=== PATIENT | female | born 1955 | race Caucasian/White ===

== ENCOUNTER 2019-08-26 09:42 | Outpatient (CLI) | payer OTHER ==
[2019-08-26 16:13] LABS: Hemoglobin 13.5 g/dL (12.0-16.0); Mean Corpuscular HGB CONC 32.7 g/dL (32.0-36.0); Mean Corpuscular Hemoglobin 30.6 pg (27.0-31.0); Mean Corpuscular Volume 93.7 fL (78.0-98.0); Platelet Count 267 thou/uL (130-400); RBC Distribution Width 11.8 % (11.5-14.5); Red Blood Cell (RBC) Count 4.41 mill/uL (4.20-5.40); White Blood Cell (WBC) Count 10.1 thou/uL (4.8-10.8)
[2019-08-27 10:11] LABS: SARS-CoV-2 MS2 Positive; SARS-CoV-2 N Gene Negative; SARS-CoV-2 S Gene Negative; SARS-CoV-2 orf1ab Negative
--- NOTE | 2019-08-27 12:47 | EKG ---
Test Reason : Blood Pressure : / mmHG Vent. Rate : 074 BPM Atrial Rate : 074 BPM P-R Int : 124 ms QRS Dur : 090 ms QT Int : 380 ms P-R-T Axes : 050 071 045 degrees QTc Int : 421 ms Normal sinus rhythm Normal ECG No previous ECGs available Confirmed by DR. Ricardo CAMPBELL ([id number]) on 08/27/2019 12:46:51 PM Referred By: RAFAL Confirmed By:DR. Ricardo CAMPBELL
== END 2019-08-26 09:43 | disposition home or self-care (01) ==
LOC: LABBT 09:42
PROVIDERS: ATTEND Orthopaedic Surgery Hand Surgery
DX: Z01.818 Encounter for other preprocedural examination (principal); Z11.59 Encounter for screening for other viral diseases; S63.279A Dislocation of unspecified interphalangeal joint of unspecified finger, initial encounter
CPT/HCPCS: 85027; 87635; 93005; 93010; U0002

== ENCOUNTER 2019-08-29 05:49 | Day surgery (SDC) | payer OTHER ==
[2019-08-26 16:03] VITALS: BMI 25.0
[2019-08-29] MEDS ORDERED: Fentanyl 100 MCG/2 ML VIAL ONE (06:26)
[2019-08-29] MEDS ORDERED: Midazolam HCl 2 mg/2 ml Vial ONE (06:26)
[2019-08-29] MEDS ORDERED: Bupivacaine PF 0.5% 30 ML VIAL ONE (06:41)
[2019-08-29] MEDS ORDERED: Bacitracin Zinc Ointment 30 gm TUBE ONE (06:41)
[2019-08-29] MEDS ORDERED: Vancomycin 1 GM/200 ML BAG ONE (07:25)
[2019-08-29] MEDS ORDERED: Vancomycin HCl 500 MG VIAL ONE (07:25)
[2019-08-29] MEDS ORDERED: Ketorolac Tromethamine 30 MG/ML VIAL ONE (10:58)
[2019-08-29] MEDS ORDERED: EPHEDRINE 25 MG/5 ML SYRINGE ONE (11:29)
[2019-08-29] MEDS ORDERED: Dexamethasone 20 MG/5 ML VIAL ONE (11:29)
[2019-08-29] MEDS ORDERED: Ondansetron PF 4 MG/2 ML Vial ONE (11:29)
[2019-08-29] MEDS ORDERED: Succinylcholine Chloride 20 MG/ML 10 ml SYRINGE FS ONE (11:29)
[2019-08-29] MEDS ORDERED: Lidocaine 1% PF 5 ML VIAL ONE (11:29)
[2019-08-29] MEDS ORDERED: PROPOFOL 200 MG/20 ML VIAL ONE (11:29)
--- NOTE | 2019-08-29 14:08 | RAD ---
RIGHT FINGER TWO VIEWS: 08/29/19 INDICATION: History of mallet finger repair. COMPARISON: None. FINDINGS: Fluoroscopic time: 3.7 seconds. Total exposure 0.11 mGy. Two fluoroscopic spot images were submitted intraoperatively. The small digit appears in flexion on b oth images. The other digits are held in hyperextension with an associated surgical retractor. Additi onal digits are seen within the frame of the images likely related the surgeon. IMPRESSION: Intraoperative right hand radiograph for mallet finger repair of the fifth digit. POS: [facility]
--- NOTE | 2019-08-29 17:05 | OP ---
DATE OF PROCEDURE: 08/29/2019 PREOPERATIVE DIAGNOSES: 1. 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 2. Volar plate rupture. 3. Intrinsic contracture. POSTOPERATIVE DIAGNOSES: 1. 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 2. Volar plate rupture. 3. Intrinsic contracture. PROCEDURE PERFORMED: 1. Distal and dorsal ulnar intrinsic release, right small finger. 2. Radial intrinsic release, right small finger. 3. Right small finger dorsal proximal phalangeal joint capsulotomy. 4. Volar plate reconstruction, proximal phalangeal joint, right small finger. 5. C-arm supervision. Volar plate reconstruction 05/01, ulnar 05/01, flexor digitorum superficialis tendon. DESCRIPTION OF PROCEDURE: After successful general endotracheal anesthesia, the limb was prepped and draped. The patient then had the time-out done appropriately, the patient was given a 10 mL metacarpophalangeal joint block dorsally and the limb was exsanguinated. Tourniquet inflated to 250 mmHg pressure. Medially, we knew the patient's preop motion was from 15 hyperextension PIP joint with subluxation of the joint all the way to approximately 25 degrees with a definite endpoint flexion. She had only approximately 30 degrees active flexion and even asleep, there was only 35 degrees of passive flexion. So, in order to achieve full passive motion, we would have to do a capsulotomy. We then made a 2 cm incision distal proximal phalangeal joint/base of the middle phalanx and going proximally up to visualize the intrinsics. We then found the intrinsics, released them in a triangular shaped defect and then, in the interval between the intrinsic tendon and the central slip on both sides to visualize the proximal interphalangeal joint. We elevated the central slip gently and then released with a Alexander blade on both sides of proximal phalangeal. The collaterals were intact with no laxity both at 0 degrees and 30 degrees before and after this procedure. After this, we could easily flex the proximal phalangeal joint to 100 degrees and performed radiographic picture with the C-arm to confirm this. We then closed the dorsal wound with interrupted 5-0 nylon in a simple pattern, we had elevated the extensor tendon off the underlying capsule in a tenolysis type technique. We then made a Kulwinder type incision beginning 5 mm distal to the palmar PIP joint crease of the small finger ulnar base and carried it down to the base of the small finger at the MP joint crease. We dissected this down to soft tissue, identified the neurovascular bundles and them gently from the midline, so that we no longer had to worry about damage. We then were able to elevate some scar tissue off the tendon sheath. We made a L-shaped incision in the tendon sheath and the proximal half of the A3 velvet in order to visualize the joint and the volar plate. We lifted up the flexor digitorum profundus superficialis tendons, visualized the joint and saw the patient had a very robust and thick A1 velvet still left on the distal third of the mid proximal phalanx, but the portion on the middle phalanx was retracted, attenuated and could not be used for any type of repair reconstruction. We extended the incision to 1.5 cm, found the interval between A1 and A2 velvet, identified the flexor digitorum superficialis through the ulnar half, brought it back through the A2 velvet and then prepared for reconstruction of the volar plate. We then used a tendon orozco to bring it through the very thick remnant of the volar plate on the distal metaphysis of the proximal phalanx, made a trough in the bone where it intersected and then buried 2 mm of the tendon into the with and held it with a micro anchor. Then, we brought the volar plate back down over this portion and sutured it back to itself. With the portion tendon through the volar plate, we then tied back to the original tendon with the tendon graft being centered in both instances between the condyles or the middle of the joint from an ulnar and radial standpoint. At this point, the tension had been applied with all sutures with the joint in -15 degrees extension. We then were able to do tenodesis effect and see 60 degrees of PIP joint flexion and -20 degrees of PIP joint extension which was where the joint was slightly more in flexion than the joint in extension. We deflated the tourniquet, then we closed the L-shaped defect created at the A3 velvet and the tendon sheath with a running 4-0 Monocryl. There was no bowstring seen. The patient had excellent one second capillary refill and digit was pink. We then closed the skin with interrupted 4-0 nylon proximal to the A2 velvet and distal A2 velvet with interrupted 5-0 nylon pulled in a mattress pattern. The patient then had a bulky dressing applied with bacitracin, Adaptic, 4x4, and Kerlix. A dorsal block splint was applied with the wrist in neutral, and the PIP joint in 30 degrees of flexion at the PIP joint of small finger. She then left the operating room without evidence of anesthetic or operative complication. Job ID: [id number]
== END 2019-08-29 12:00 | disposition home or self-care (01) ==
LOC: SDC 05:49
PROVIDERS: ATTEND Orthopaedic Surgery Hand Surgery
PROC: 0RNW0ZZ Release Right Finger Phalangeal Joint, Open Approach (ICD-10-PCS; principal; 2019-08-29)
PROC: 0MQ70ZZ Repair Right Hand Bursa and Ligament, Open Approach (ICD-10-PCS; principal; 2019-08-29)
DX: M24.541 Contracture, right hand (principal); S63.436A Traumatic rupture of volar plate of right little finger at metacarpophalangeal and interphalangeal joint, initial encounter; S63.236A Subluxation of proximal interphalangeal joint of right little finger, initial encounter; M20.031 Swan-neck deformity of right finger(s); M20.011 Mallet finger of right finger(s); Z79.811 Long term (current) use of aromatase inhibitors; Z79.899 Other long term (current) drug therapy; Z88.0 Allergy status to penicillin; Z88.5 Allergy status to narcotic agent; X58.XXXA Exposure to other specified factors, initial encounter
CPT/HCPCS: 76000; C1713; J1885; J2250; J3010; J3370; S0020

== ENCOUNTER 2020-05-20 07:37 | Outpatient (CLI) | payer SELFPAY ==
[2020-05-20 16:34] LABS: #Basophils 0.1 10x3/uL (0.0-0.2); #Eosinphils 0.2 10x3/uL (0.0-0.5); #Monocytes 0.8 10x3/uL (0.0-1.1); #Neutrophils 5.4 10x3/uL (1.5-8.4); %Basophils 1.2 % (0.0-2.0); %Eosinophils 2.3 % (0.0-6.0); %Lymphocytes 21.7 % (18.0-47.0); %Neutrophils 64.4 % (40.0-75.0); Hemoglobin 13.6 g/dL (12.0-16.0); Mean Corpuscular HGB CONC 32.2 G/DL (32.0-36.0); Mean Corpuscular Hemoglobin 29.6 PG (27.0-33.0); Mean Corpuscular Volume 91.9 fl (80.0-100.0); Mean Platelet Volume 10.1 fl (7.4-10.4); Platelet Count 282 10x3/uL (130-400); Red Blood Cell (RBC) Count 4.59 10x6/uL (3.90-5.20); White Blood Cell (WBC) Count 8.4 10x3/uL (4.5-11.0)
[2020-05-21 01:58] LABS: SARS-CoV-2 PCR by NAA Not Detected (NotDetected)
== END 2020-05-20 07:38 | disposition home or self-care (01) ==
LOC: LABBT 07:37
PROVIDERS: ATTEND Orthopaedic Surgery Hand Surgery
DX: Z01.812 Encounter for preprocedural laboratory examination (principal); Z20.822 Contact with and (suspected) exposure to COVID-19; M24.541 Contracture, right hand
CPT/HCPCS: 85025; 87635; U0003; U0005

== ENCOUNTER 2020-05-25 07:29 | Day surgery (SDC) | payer OTHER ==
[2020-05-21 11:22] VITALS: BMI 25.8
[2020-05-25] MEDS ORDERED: PROPOFOL 200 MG/20 ML VIAL ONE (09:07)
[2020-05-25] MEDS ORDERED: ePHEDrine 50 MG/ML VIAL ONE (09:07)
[2020-05-25] MEDS ORDERED: Dexamethasone 20 MG/5 ML VIAL ONE (09:07)
[2020-05-25] MEDS ORDERED: Ondansetron PF 4 MG/2 ML Vial ONE (09:07)
[2020-05-25] MEDS ORDERED: Lidocaine 1% PF 5 ML VIAL ONE (09:07)
[2020-05-25] MEDS ORDERED: Ketorolac Tromethamine 30 MG/ML VIAL ONE (09:07)
[2020-05-25] MEDS ORDERED: Sodium Chloride 0.9% 10 ML ONE (11:27)
[2020-05-25] MEDS ORDERED: Betamet Acet/Betamet Na Ph 30 MG/5 ML VIAL ONE (11:27)
[2020-05-25] MEDS ORDERED: Bacitracin Zinc Ointment 30 gm TUBE ONE (11:27)
[2020-05-25] MEDS ORDERED: Bupivacaine PF 0.5% 30 ML VIAL ONE (11:27)
[2020-05-25] MEDS ORDERED: Fentanyl 100 MCG/2 ML VIAL ONE (11:33)
[2020-05-25] MEDS ORDERED: Clindamycin/D5W 900 mg/50 ml Premix Bag ONE (11:49)
[2020-05-25] MEDS ORDERED: Levofloxacin 500 mg/D5W 100 ml Premix Bag ONE (11:49)
[2020-05-25] MEDS ORDERED: Vancomycin 1 GM/200 ML BAG ONE (11:52)
--- NOTE | 2020-05-25 20:56 | OP ---
DATE OF PROCEDURE: 05/25/2020 TOURNIQUET TIME: 19 minutes. ESTIMATED BLOOD LOSS: 5 mL. SPECIMENS: None. PREOPERATIVE DIAGNOSIS: Volar capsule contracture, right small finger with previous 1/2 sleeve of FDS advancement intact. PROCEDURE PERFORMED: Capsulectomy with volar plate release, right small finger PIP joint. INDICATIONS: The patient has had recurrent dislocation and had a 1/2 sleeve of FDS used to repair this and she slowly drifted into -30 degrees of extension/30 degree flexion contracture. This would not resolve with months of conservative treatments, so we recommended release in an effort to maintain as much of repair as possible. DESCRIPTION OF PROCEDURE: After successful general endotracheal anesthesia, the limb was prepped and draped. We gave her a total of 20 mL of 0.5% Marcaine block, 10 at the metacarpophalangeal joint level prior to surgery and 10 after the procedure. She had good capillary refill at the end of procedure. The patient then had the limb exsanguinated, tourniquet inflated to 250 mmHg pressure, and then the patient had the previous ulnar base small finger PIP joint incision entered in a Olu fashion and carried through the skin and subcutaneous tissue until we raised the flap including the neurovascular bundles on the ulnar side and then on the radial side. First we approached it from the ulnar side, and here, we saw the anchor, the sutures holding the previous repair, and we went medial to these where we were able to separate the capsule and perform one-half of a volar plate and capsular release. This, however, did not prevent a -20 degree active extension with the spring bag. We then had the surgeon assist and switch sides, dissected down to the ulnar neurovascular bundle, then released around the previous repair on the volar plate. We then checked and there was no further sites ready for completion, so we then gently extended to dig in the finger PIP in the -25 to 30 degrees of flexion, contracture reduced to +5 hyperextension with return to its regular form in the frontal sagittal plane. The patient then left the operating room without evidence of anesthetic or operative complication. After we released the tourniquet, obtained hemostasis, closed the wound with interrupted 4-0 nylon. A short-arm splint was applied. Job ID: [id number]
== END 2020-05-25 15:19 | disposition home or self-care (01) ==
LOC: SDC 07:29
PROVIDERS: ATTEND Orthopaedic Surgery Hand Surgery
PROC: 0RNU0ZZ Release Right Metacarpophalangeal Joint, Open Approach (ICD-10-PCS; principal; 2020-05-25)
DX: M24.541 Contracture, right hand (principal); Z79.899 Other long term (current) drug therapy; Z87.891 Personal history of nicotine dependence; Z88.0 Allergy status to penicillin; Z88.5 Allergy status to narcotic agent
CPT/HCPCS: J0690; J0702; J1100; J1885; J1956; J2405; J2704; J3010; J3370; J3490; S0020